=== PATIENT | female | born 1955 | race American Indian/Alaskan Native ===

== ENCOUNTER 2018-02-06 23:26 | Emergency (ER) | payer MEDICARE ==
[2018-02-06 23:48] VITALS: BMI 27.3
[2018-02-06 23:49] VITALS: TEMP 98
[2018-02-07] MEDS ORDERED: Sodium Chloride 0.9% 1,000 ML IV STA (00:15)
--- NOTE | 2018-02-07 00:19 | ED PDOC ---
Arrival/HPI - General Chief Complaint: Abdominal Pain Time Seen by Provider: 02/07/18 00:02 Historian: Patient, Family - History of Present Illness Narrative History of Present Illness (Text): 02/07/18 00:15 62 year old female, whose history includes diabetes, arthritis, and sarcoidosis , presents to the emergency department complaining of chronic pain. Patient is experiencing generalized pain, which family states she has every day and has been unable to sleep well since she ran out of her Fentanyl patches yesterday; she typically places a new one on every 3 days. She has been unable to get new patches due to insurance not covering it until a certain amount of time has passed. She already has a prescription for it from Janee Guerrero. Patient denies any fevers, chills, shortness of breath, nausea, vomiting, diarrhea, back pain, neck pain, urinary symptoms, headache, dizziness, or any other complaint. Patient is drowsy, states she is just tired from not being able to sleep recently. Time/Duration: 24 hours Symptom Onset: Gradual Symptom Course: Unchanged Context: Home Past Medical History - Provider Review Nursing Documentation Reviewed: Yes - Cardiac Hx Cardiac Disorders: Yes Hx Hypertension: Yes - Pulmonary Hx Respiratory Disorders: Yes Other/Comment: HX: SARCOIDOSIS - HEENT Hx HEENT Disorder: Yes Hx Glaucoma: Yes ("BEGINNING STAGES") - Endocrine/Metabolic Hx Endocrine Disorders: Yes Hx Diabetes Mellitus Type 2: Yes - Hematological/Oncological Hx Blood Disorders: Yes Hx Cancer: Yes (HX: ABNORMAL PAP-?CERVICAL CANCER) - Musculoskeletal/Rheumatological Hx Musculoskeletal Disorders: Yes Hx Arthritis: Yes - Gastrointestinal Hx Gastrointestinal Disorders: Yes Other/Comment: HX: GASTRIC BYPASS. HX: LBM-POST GASTRIC BYPASS - Genitourinary/Gynecological Hx Genitourinary Disorders: Yes Other/Comment: HX: ABNORMAL PAP - Psychiatric Hx Substance Use: No - Surgical History Hx Gastric Bypass Surgery: Yes Other/Comment: HX: ETOPIC [id number] REMOVED. HX: RIGHT OVARIAN CYST- CYST REMOVED. - Anesthesia Hx Anesthesia: Yes Hx Anesthesia Reactions: No Hx Malignant Hyperthermia: No Family/Social History - Physician Review Nursing Documentation Reviewed: Yes Family/Social History: Unknown Family HX Smoking Status: Never Smoked Hx Alcohol Use: No Hx Substance Use: No Allergies/Home Meds Allergies/Adverse Reactions: Allergies honey Allergy (Severe, Verified 02/06/18 23:49) ANAPHYLAXIS Sulfa (Sulfonamide Antibiotics) Allergy (Mild, Verified 02/06/18 23:49) ANAPHYLAXIS Home Medications: Home Meds Medication Instructions Recorded Confirmed Acetaminophen/Oxycodone Hydr 1 tab PO Q6 PRN 05/17/15 02/07/18 [Percocet 10/325 mg Tab] Amlodipine/Valsartan [Exforge 5 1 tab PO DAILY 05/17/15 02/07/18 mg-160 mg] Celecoxib [celeBREX] 200 mg PO BID 05/17/15 02/07/18 Esomeprazole Magnesium [Nexium] 40 mg PO DAILY 05/17/15 02/07/18 Fentanyl [Fentanyl] 1 patch TD Q72 05/17/15 02/07/18 Potassium Chloride [K-Tab] 20 meq PO DAILY 05/17/15 02/07/18 Aspirin [Ecotrin] 81 mg PO HS 12/14/17 02/07/18 Atropine/Diphenoxylate [Lonox 1 tab PO DAILY 12/14/17 02/07/18 0.025 MG-2.5 MG] predniSONE [Prednisone] 10 mg PO HS 12/14/17 02/07/18 Review of Systems - Physician Review All systems were reviewed & negative as marked: Yes - Review of Systems Constitutional: absent: Fevers Gastrointestinal: absent: Vomiting Physical Exam - Physical Exam Narrative Physical Exam (Text): 02/07/18 00:20 Constitutional: No acute distress. Drowsy but responsive. Head: Normocephalic. Atraumatic. Eyes: PERRL. ENT: Moist mucous membranes. Neck: Supple. Cardiovascular: Positive murmur. Chest: No tenderness. Respiratory: Clear to auscultation bilaterally. GI: Soft. Nontender. Nondistended. Rectal: Guaiac negative. Back: No CVA tenderness. Musculoskeletal: No tenderness or swelling of extremities. Skin: No rash. Neurologic: Awake, alert, oriented x3, no focal deficit. Vital Signs Temp Pulse Resp BP Pulse Ox 02/07/18 03:37 76 16 111/70 99 02/07/18 01:43 87 18 141/74 100 02/06/18 23:30 98.0 F 81 18 116/67 98 Medical Decision Making ED Course and Treatment: 02/07/18 00:22 Impression: 62 year old female presents to the emergency department complaining of drowsiness and pain after running out of her Fentanyl patches. Plan: -- Chest xray -- Urine culture -- Urinalysis -- Labs -- Reassess and disposition Progress Notes: 02/07/18 00:17 EKG: Ordered, reviewed, and independently interpreted the EKG. Rate : 83 BPM Rhythm : NSR Interpretation : RBBB. No ST-segment elevations. CXR no consolidation. Labs unremarkable. No UTI. No dehydration. Vital signs normal during ER stay of over 4 hours. feels comfortable to take patient home and will f/u with PMD, instructed to return to ED for worsening pain, dyspnea, fever, vomiting, or any other problem. - Lab Interpretations Lab Results: 02/07/18 00:23 02/07/18 00:23 Lab Results 02/07/18 02:18: Urine Color Yellow, Urine Appearance Clear, Urine pH 6.5, Ur Specific [place] 1.010, Urine Protein Negative, Urine Glucose (UA) Negative, Urine Ketones Negative, Urine Blood Negative, Urine Nitrate Negative, Urine Bilirubin Negative, Urine Urobilinogen 0.2, Ur Leukocyte Esterase Negative 02/07/18 00:23: Influenza Typ A,B (EIA) Negative for flu a/b 02/07/18 00:23: Sodium 140, Potassium 3.6, Chloride 105, Carbon Dioxide 29, Anion Gap 10, BUN 11, Creatinine 0.7, Est GFR ( Amer) > 60, Est GFR (Non- Af Amer) > 60, Random Glucose 76, Calcium 9.1, Total Bilirubin 0.2, AST 18, ALT 30, Alkaline Phosphatase 66, Troponin I < 0.01, Total Protein 6.3, Albumin 3.1, Globulin 3.2, Albumin/Globulin Ratio 1.0 L 02/07/18 00:23: WBC 5.6, RBC 3.48 L, Hgb 8.7 L, Hct 26.6 L, MCV 76.4 L, MCH 25.0 , MCHC 32.7, RDW 13.8, Plt Count 235, MPV 8.6, Gran % 47.8 L, Lymph % (Auto) 39.3 H, Power % (Auto) 12.3 H, Eos % (Auto) 0.4 L, Baso % (Auto) 0.2, Gran # 2.68 , Lymph # (Auto) 2.2, Power # (Auto) 0.7 H, Eos # (Auto) 0.0, Baso # (Auto) 0.01 - RAD Interpretation Radiology Orders: 02/07/18 00:14 CHEST PORTABLE [RAD] Stat - Medication Orders Current Medication Orders: Discontinued Medications Sodium Chloride (Sodium Chloride 0.9%) 1,000 mls @ 999 mls/hr IV .Q1H1M STA Stop: 02/07/18 01:15 Last Admin: 02/07/18 00:45 Dose: 999 mls/hr eMAR Start Stop Document 02/07/18 00:45 RG (Rec: 02/07/18 00:54 [facility] [id number]) Intravenous Solution Start Date 02/07/18 Start Time 00:45 End Date 02/07/18 End time 01:45 Total Infusion Time 60 - Scribe Statement The provider has reviewed the documentation as recorded by the Aaron Ardon Provider Scribe Attestation: All medical record entries made by the Scribe were at my direction and personally dictated by me. I have reviewed the chart and agree that the record accurately reflects my personal performance of the history, physical exam, medical decision making, and the department course for this patient. I have also personally directed, reviewed, and agree with the discharge instructions and disposition. Disposition/Present on Arrival - Present on Arrival Any Indicators Present on Arrival: No History of DVT/PE: No History of Uncontrolled Diabetes: No Urinary Catheter: No History of Decub. Ulcer: No History Surgical Site Infection Following: None - Disposition Have Diagnosis and Disposition been Completed?: Yes Diagnosis: Chronic pain Disposition: HOME/ ROUTINE Disposition Time: 04:01 Patient Plan: Discharge Condition: STABLE Discharge Instructions (ExitCare): Chronic Pain (DC) Referrals: Best Guerrero MD [Family Provider] - Follow up with primary Forms: [employer] (Nauruan)
[2018-02-07 01:04] LABS: BASO # 0.01 K/mm3 (0.0-2.0); BASO % 0.2 % (0.0-3.0); EOS % 0.4 % (1.5-5.0); GRAN # 2.68 (1.4-6.5); GRAN % 47.8 % (50.0-68.0); HEMOGLOBIN 8.7 g/dL (12.0-16.0); LYMPH # 2.2 (1.2-3.4); LYMPH % 39.3 % (22.0-35.0); MEAN CELL VOLUME 76.4 fl (80.0-105.0); MEAN CORPUSCULAR HGB CONC 32.7 g/dl (31.0-37.0); MEAN PLATELET VOLUME 8.6 fl (7.0-11.0); MONO # 0.7 (0.1-0.6); MONO % 12.3 % (1.0-6.0); RBC 3.48 10^6/uL (3.5-6.1); RED CELL DISTRIBUTION WIDTH 13.8 % (11.5-14.5); WHITE BLOOD COUNT 5.6 10^3/ul (4.5-11.0)
[2018-02-07 01:15] LABS: ALBUMIN 3.1 g/dL (3.0-4.8); ALT/SGPT 30 U/L (7-56); AST/SGOT 18 U/L (14-36); BLOOD UREA NITROGEN 11 mg/dL (7-21); CALCIUM 9.1 mg/dL (8.4-10.5); GFR AFRICAN-AMERICAN > 60; GFR NON-AFRICAN AMERICAN > 60
[2018-02-07 01:26] LABS: TROPONIN I < 0.01 ng/mL
[2018-02-07 03:53] VITALS: O2SAT 99
[2018-02-07 03:57] LABS: PH,URINE 6.5 (4.7-8.0); URINE BILIRUBIN NEGATIVE (NEGATIVE); URINE BLOOD NEGATIVE (NEGATIVE); URINE GLUCOSE (UA) NEGATIVE (NEGATIVE); URINE LEUKOCYTE ESTERASE NEGATIVE Leu/uL (NEGATIVE); URINE PROTEIN NEGATIVE mg/dL (<30 mg/dL); URINE UROBILINOGEN 0.2 E.U./dL (<1 E.U./dL)
[2018-02-07 03:59] LABS: URINE APPEARANCE CLEAR (CLEAR); URINE COLOR YELLOW (YELLOW)
[2018-02-07 04:21] VITALS: BP 128/79; PULSE 78; RESP 18
--- NOTE | 2018-02-07 09:28 | RAD ---
HISTORY: drowsy COMPARISON: No prior. FINDINGS: LUNGS: No active pulmonary disease. PLEURA: No significant pleural effusion identified, no pneumothorax apparent. CARDIOVASCULAR: No radiographic findings to suggest acute or significant cardiovascular disease. OSSEOUS STRUCTURES: No significant abnormalities. VISUALIZED UPPER ABDOMEN: Normal. OTHER FINDINGS: None. IMPRESSION: No active disease.
--- NOTE | 2018-02-07 14:51 | CARD ---
APPROVED REPORT EKG Measurement Heart [id number] [id number] <Conclusion> Normal sinus rhythm Possible Left atrial enlargement Right bundle branch block Inferior infarct, age undetermined Abnormal ECG
== END 2018-02-07 04:18 | disposition home or self-care (01) ==
LOC: ED 23:26
DX: G89.29 Other chronic pain (principal); E11.9 Type 2 diabetes mellitus without complications; I10 Essential (primary) hypertension; M19.90 Unspecified osteoarthritis, unspecified site; D86.9 Sarcoidosis, unspecified
CPT/HCPCS: 71045; 80053; 81003; 84484; 85025; 87086; 87804; 93005; 96360; 99285; J7040

== ENCOUNTER 2018-09-28 23:59 | Emergency (ER) | payer MEDICARE ==
[2018-09-29 00:13] VITALS: BMI 26.4
[2018-09-29 00:26] VITALS: RESP 18; TEMP 98.6
[2018-09-29] MEDS ORDERED: Sodium Chloride 0.9% 1,000 ML IV SCH (00:30)
--- NOTE | 2018-09-29 00:38 | ED PDOC ---
Arrival/HPI - General Chief Complaint: Pain, Chronic Time Seen by Provider: 09/29/18 00:02 Historian: Patient - History of Present Illness Narrative History of Present Illness (Text): 09/29/18 00:38 Particia Jamil is a 62 year old female former smoker, who past medical history includes hypertension, CAD, and hyperlipidemia, who presents to the ED complaining of chronic pain. Patient states she has chronic pain following a f all few ago and normally wears a Fentanyl patch for pain management. Patient has been unable to get a refill, has been experiencing pain, and came to the ED for further evaluation. Patient reports she took Xanax 2 mg tonight and took an extra 1.5 mg of Xanax after. Patient denies any fever, chills, chest pain, abdominal pain, vomiting, diarrhea, or any other complaints. Symptom Onset: Gradual Symptom Course: Unchanged Activities at Onset: Light Context: Home Past Medical History - Provider Review Nursing Documentation Reviewed: Yes - Infectious Disease Hx of Infectious Diseases: None - Cardiac Hx Hypertension: Yes - Pulmonary Hx Respiratory Disorders: Yes Other/Comment: HX: SARCOIDOSIS - HEENT Hx HEENT Disorder: Yes Hx Glaucoma: Yes ("BEGINNING STAGES") - Renal Hx Renal Disorder: Yes - Endocrine/Metabolic Hx Diabetes Mellitus Type 2: Yes - Hematological/Oncological Hx Blood Disorders: Yes Hx Cancer: Yes (HX: ABNORMAL PAP-?CERVICAL CANCER) - Musculoskeletal/Rheumatological Hx Arthritis: Yes - Gastrointestinal Hx Gastrointestinal Disorders: Yes Other/Comment: HX: GASTRIC BYPASS. HX: LBM-POST GASTRIC BYPASS - Genitourinary/Gynecological Hx Genitourinary Disorders: Yes Hx Cervical Cancer: Yes (2018) Other/Comment: HX: ABNORMAL PAP - Psychiatric Hx Substance Use: No - Surgical History Hx Gastric Bypass Surgery: Yes Other/Comment: HX: ETOPIC [id number] REMOVED. HX: RIGHT OVARIAN CYST- CYST REMOVED. - Anesthesia Hx Anesthesia: Yes Hx Anesthesia Reactions: No Hx Malignant Hyperthermia: No Family/Social History - Physician Review Nursing Documentation Reviewed: Yes Family/Social History: Unknown Family HX Smoking Status: Never Smoked Hx Alcohol Use: No Hx Substance Use: No Allergies/Home Meds Allergies/Adverse Reactions: Allergies honey Allergy (Severe, Verified 09/29/18 01:02) ANAPHYLAXIS Sulfa (Sulfonamide Antibiotics) Allergy (Severe, Verified 09/29/18 01:02) ANAPHYLAXIS Home Medications: Home Meds Medication Instructions Recorded Confirmed Acetaminophen/Oxycodone Hydr 1 tab PO Q6 PRN 05/17/15 02/07/18 [Percocet 10/325 mg Tab] Celecoxib [celeBREX] 200 mg PO BID 05/17/15 04/07/18 Esomeprazole Magnesium [Nexium] 40 mg PO DAILY 05/17/15 04/07/18 Fentanyl 1 patch TD Q72 05/17/15 02/07/18 Potassium Chloride [K-Tab ER] 20 meq PO DAILY 05/17/15 04/07/18 Atropine/Diphenoxylate [Lomotil 1 tab PO DAILY 12/14/17 04/07/18 0.025-2.5 mg tablet] predniSONE [predniSONE Tab] 10 mg PO HS 12/14/17 04/07/18 Amlodipine/Valsartan [Exforge 1 tab PO DAILY 04/07/18 04/07/18 10-160 mg Tablet] metFORMIN [glucOPHAGE] 500 mg PO DAILY 04/07/18 04/07/18 Review of Systems - Physician Review All systems were reviewed & negative as marked: Yes - Review of Systems Constitutional: Normal. absent: Fevers Eyes: Normal ENT: Normal Respiratory: Normal. absent: SOB, Cough Cardiovascular: Normal. absent: Chest Pain Gastrointestinal: absent: Abdominal Pain, Nausea Genitourinary Female: Normal. absent: Dysuria, Frequency, Hematuria, Urine Output Changes, Vaginal Bleeding, Vaginal Discharge Musculoskeletal: Normal. absent: Back Pain, Neck Pain Skin: Normal Neurological: Normal. absent: Headache, Dizziness Endocrine: Normal Hemo/Lymphatic: Normal Psychiatric: Normal Physical Exam Vital Signs Reviewed: Yes Vital Signs Temp Pulse Resp BP Pulse Ox 09/29/18 00:13 98.6 F 82 18 99/63 L 95 Temperature: Afebrile Blood Pressure: Normal Pulse: Regular Respiratory Rate: Normal Appearance: Positive for: Well-Appearing, Non-Toxic, Comfortable Pain Distress: None Mental Status: Positive for: Lethargic - Systems Exam Head: Present: Atraumatic, Normocephalic Pupils: Present: PERRL Extroacular Muscles: Present: EOMI Conjunctiva: Present: Normal Mouth: Present: Moist Mucous Membranes Neck: Present: Normal Range of Motion Respiratory/Chest: Present: Clear to Auscultation, Good Air Exchange. No: Respiratory Distress, Accessory Muscle Use Cardiovascular: Present: Regular Rate and Rhythm, Normal S1, S2. No: Murmurs Abdomen: No: Tenderness, Distention, Peritoneal Signs Back: Present: Normal Inspection Upper Extremity: Present: Normal Inspection. No: Cyanosis, Edema Lower Extremity: Present: Normal Inspection. No: Edema Neurological: Present: GCS=15, CN II-XII Intact, Speech Normal Skin: Present: Warm, Dry, Normal Color. No: Rashes Psychiatric: Present: Lethargic Medical Decision Making ED Course and Treatment: 09/29/18 00:38 Impression: 62 year old female complaining of chronic pain, requesting pain medication. Plan: -- EKG -- Labs -- Fentanyl patch Progress Notes: 09/29/18 00:34 reviewed EKG, NSR at [address]pm[address] RBBB. Non-specific ST/T wave changes. - EKG Interpretation Interpreted by ED Physician: Yes Type: 12 lead EKG - Medication Orders Current Medication Orders: Sodium Chloride (Sodium Chloride 0.9%) 1,000 mls @ 500 mls/hr IV .Q2H CECILE - Scribe Statement The provider has reviewed the documentation as recorded by the Scribe Jill Hicks All medical record entries made by the Scribe were at my direction and personally dictated by me. I have reviewed the chart and agree that the record accurately reflects my personal performance of the history, physical exam, medical decision making, and the department course for this patient. I have also personally directed, reviewed, and agree with the discharge instructions and disposition. Disposition/Present on Arrival - Present on Arrival Any Indicators Present on Arrival: No History of DVT/PE: No History of Uncontrolled Diabetes: No Urinary Catheter: No History of Decub. Ulcer: No History Surgical Site Infection Following: None - Disposition Have Diagnosis and Disposition been Completed?: Yes Diagnosis: Chronic pain Disposition: HOME/ ROUTINE Disposition Time: 03:30 Condition: GOOD Discharge Instructions (ExitCare): Chronic Pain (DC) Forms: [employer] (Turkmen)
[2018-09-29 00:47] LABS: BASO # 0.02 K/mm3 (0.0-2.0); BASO % 0.4 % (0.0-3.0); EOS % 0.8 % (1.5-5.0); GRAN # 2.21 (1.4-6.5); GRAN % 46.7 % (50.0-68.0); HEMOGLOBIN 9.2 g/dL (12.0-16.0); LYMPH # 2.1 (1.2-3.4); LYMPH % 43.5 % (22.0-35.0); MEAN CELL VOLUME 75.9 fl (80.0-105.0); MEAN CORPUSCULAR HEMOGLOBIN 24.4 pg (25.0-35.0); MEAN CORPUSCULAR HGB CONC 32.2 g/dl (31.0-37.0); MONO # 0.4 (0.1-0.6); MONO % 8.6 % (1.0-6.0); RBC 3.77 10^6/uL (3.5-6.1); RED CELL DISTRIBUTION WIDTH 14.3 % (11.5-14.5); WHITE BLOOD COUNT 4.7 10^3/uL (4.5-11.0)
[2018-09-29 00:53] LABS: ALB/GLOB RATIO 1.1 (1.1-1.8); ALBUMIN 3.6 g/dL (3.0-4.8); ALT/SGPT 31 U/L (7-56); AST/SGOT 37 U/L (14-36); BLOOD UREA NITROGEN 8 mg/dL (7-21); CALCIUM 8.9 mg/dL (8.4-10.5); GFR NON-AFRICAN AMERICAN > 60
[2018-09-29 01:04] LABS: TROPONIN I < 0.01 ng/mL
[2018-09-29 02:33] VITALS: BP 104/65; PULSE 69; O2SAT 98
--- NOTE | 2018-09-29 13:45 | CARD ---
APPROVED REPORT Date of service: 09/29/2018 EKG Measurement Heart [id number] [place] 150P33 [id number] <Conclusion> Normal sinus rhythm Possible Left atrial enlargement Right bundle branch block Inferior infarct, old
== END 2018-09-29 03:43 | disposition home or self-care (01) ==
LOC: ED 23:59
DX: G89.29 Other chronic pain (principal); I25.10 Atherosclerotic heart disease of native coronary artery without angina pectoris; I10 Essential (primary) hypertension; E78.5 Hyperlipidemia, unspecified; E11.9 Type 2 diabetes mellitus without complications
CPT/HCPCS: 80053; 84484; 85025; 93005; 99283; J7030